=== PATIENT | male | born 1980 | race Caucasian/White ===

== ENCOUNTER 2017-02-08 09:25 | Emergency (ER) | payer SELFPAY ==
[~2017-02-08] VITALS: Ht 182.9 cm; Wt 80.0 kg
[2017-02-08 09:30] VITALS: BP 117/77; PULSE 70; RESP 20; TEMP 97.8; O2SAT 99
--- NOTE | 2017-02-08 09:49 | PD ---
HPI . left axilla swelling since Tuesday Chief Complaint: Skin Problem Time Seen by Provider: 09:48 Travel History International Travel<30 days: No Contact w/Intl Traveler<30days: No Traveled to known affect area: No History of Present Illness HPI 36-year-old male with history of severe anxiety here with complaints of the left axilla swelling since Tuesday. Patient tells me that he initially had some type of cold and flulike symptoms 1 week prior and had some lymph node swelling in his axilla. He says he got better, and then noticed a new swollen area in his left armpit. He has been using warm compresses for a day and thinks that it 's getting bigger. He is complaining of tenderness in the area. He is very anxious and tells me he is worried about this. He denies any fever or chills. He's not certain if something may have stung him. PFSH Past Medical History Anxiety: Yes ?: Not Social History Alcohol Use: Yes Tobacco Use: Yes Substance Use: No Allergies-Medications (Allergen,Severity, Reaction): Coded Allergies: No Known Allergies (Unverified , 02/08/17) Reported Meds & Prescriptions Reported Meds & Active Scripts Active Ibuprofen 800 Mg Tab 800 Mg PO TID Bactrim DS (Sulfamethoxazole-Trimethoprim) 800-160 Mg Tab 1 Tab PO BID Review of Systems General / Constitutional: No: Fever Eyes: No: Visual changes HENT: No: Headaches Cardiovascular: No: Chest Pain or Discomfort Respiratory: No: Shortness of Breath Gastrointestinal: No: Abdominal Pain Genitourinary: No: Dysuria Musculoskeletal: No: Pain Skin: Positive Other (left axilla swelling), No Rash Neurologic: No: Weakness Psychiatric: No: Depression Endocrine: No: Polydipsia Hematologic/Lymphatic: No: Easy Bruising Physical Exam Narrative GENERAL: AAO x 3, no acute distress, Well-nourished, well-developed patient. SKIN: Warm and dry. No visible rashes or bruising. Left axilla with a 2 cm induration, mild erythema, no temperature variation. There is no fluctuance. There is no definitive abscess formation. HEAD: Normocephalic and atraumatic. EYES: No scleral icterus. No injection or drainage. ENT: No nasal drainage noted. Mucous membranes pink. Airway patent. NECK: Supple, trachea midline. No JVD. CARDIOVASCULAR: Regular rate and rhythm without murmurs, gallops, or rubs. RESPIRATORY: Breath sounds equal bilaterally. No accessory muscle use. No rhonchi or rales. GASTROINTESTINAL: Normal visual inspection EXTREMITIES: No cyanosis or edema. BACK: Nontender without obvious deformity. No CVA tenderness. PSYCH: AAO x 3, normal affect. Data Data Last Documented VS Vital Signs Date Time Temp Pulse Resp B/P Pulse Ox O2 Delivery O2 Flow Rate FiO2 02/08/17 09:30 97.8 70 20 117/77 99 Room Air [facility] Medical Decision Making Medical Screen Exam Complete: Yes Emergency Medical Condition: Yes Medical Record Reviewed: Yes Differential Diagnosis Left axilla cellulitis, early abscess, less likely lymph node swelling Narrative Course 36-year-old male with history of severe anxiety here with complaints of the left axilla swelling since Tuesday. Patient tells me that he initially had some type of cold and flulike symptoms 1 week prior and had some lymph node swelling in his axilla. He says he got better, and then noticed a new swollen area in his left armpit. He has been using warm compresses for a day and thinks that it 's getting bigger. He is complaining of tenderness in the area. He is very anxious and tells me he is worried about this. He denies any fever or chills. He's not certain if something may have stung him. Patient seen and examined. He appears to have an early abscess in his left axilla. Unfortunately it is not ready for drainage. I've advised him to try warm compresses and return if there is a head formation. I will go ahead and start him on a course of Bactrim. I provided him with ibuprofen for pain relief. Patient verbalized understanding of instructions, questions were answered, and thanked me for their care. I advised them if their condition worsens, please return to the nearest emergency room for further care. Diagnosis Primary Impression: Cellulitis of axilla, left Patient Instructions: General Instructions Additional Instructions: You can try to use warm compresses to the area to see if a head develops. If it does, you can come back to the emergency department to have it drained. [place] for worsening signs of infection which include fever, increased redness , increased warmth, purulent drainage, increased swelling or streaking. If any of these develop, please go to the nearest emergency room. Please return to emergency department if your symptoms return or worsen. Follow up with your primary care provider. Take medications as prescribed. Med/Other Pt SpecificInfo: Prescription(s) given Scripts Ibuprofen 800 Mg Inr976 Mg PO TID #21 TAB Prov:Cintia Dominguez DO 02/08/17 Sulfamethoxazole-Trimethoprim (Bactrim DS)800-160 Mg Tab1 Tab PO BID #20 TAB Prov:Cintia Dominguez DO 02/08/17 Disposition: 01 DISCHARGE HOME Condition: Stable Rosa Elena Dwyer February 08, 2017 09:48
[2017-02-08] MEDS ORDERED: BACT800T5 PO (09:51)
[2017-02-08] MEDS ORDERED: IBUP800T23 PO (09:51)
[2017-02-09] MEDS ORDERED: CEPH-460 PO (17:48)
== END 2017-02-08 10:06 | disposition home or self-care (01) ==
LOC: NEPK 09:25
DX: F41.9 Anxiety disorder, unspecified (principal); L03.112 Cellulitis of left axilla
CPT/HCPCS: 99282

== ENCOUNTER 2017-02-09 17:32 | Emergency (ER) | payer SELFPAY ==
[~2017-02-09] VITALS: Ht 182.9 cm; Wt 70.0 kg
[2017-02-09 17:32] VITALS: BP 138/72; PULSE 92; RESP 16; TEMP 98.7; O2SAT 95
[~2017-02-09 17:32] MED LIST: BACT800T5 PO; IBUP800T23 PO
--- NOTE | 2017-02-09 17:36 | PD ---
Physical Exam Date Seen by Provider: February 09, 2017 Time Seen by Provider: 17:35 Narrative 36 year old male presents to the emergency department for evaluation of abscess to the left axilla. He was given antibiotics yesterday for cellulitis, but abscess formed today. Vital signs reviewed. Patient awaiting bed placement. Data Data Last Documented VS Vital Signs Date Time Temp Pulse Resp B/P Pulse Ox O2 Delivery O2 Flow Rate FiO2 02/09/17 17:32 98.7 92 16 138/72 95 MDM Supervised Visit with MADDY: Marbella Benjamin February 09, 2017 17:36
[2017-02-09] MEDS ORDERED: CEPH-460 PO (17:48)
--- NOTE | 2017-02-09 17:49 | PD ---
HPI Chief Complaint: Skin Problem Time Seen by Provider: 17:47 Travel History International Travel<30 days: No Contact w/Intl Traveler<30days: No Traveled to known affect area: No History of Present Illness HPI 36-year-old male presents emergency Department with complaint of worsening of an abscess to his left armpit. He was seen yesterday and was given Bactrim. The abscess was not drained because it wasn't big enough. He has been taking the Bactrim as prescribed. Denies fever or vomiting. Has been doing warm compresses to the area. Has no other medical complaints. No known allergies. No other modifying factors or associated signs and symptoms. PFSH Past Medical History Anxiety: Yes Social History Alcohol Use: Yes Tobacco Use: Yes Substance Use: No Allergies-Medications (Allergen,Severity, Reaction): Coded Allergies: No Known Allergies (Unverified , 02/09/17) Reported Meds & Prescriptions Reported Meds & Active Scripts Active Keflex (Cephalexin) 500 Mg Cap 500 Mg PO Q6H 10 Days Ibuprofen 800 Mg Tab 800 Mg PO TID Bactrim DS (Sulfamethoxazole-Trimethoprim) 800-160 Mg Tab 1 Tab PO BID Review of Systems Except as stated in HPI: all other systems reviewed are Neg Physical Exam Narrative GENERAL: Well-nourished, well-developed patient, in no acute distress; afebrile , nontoxic-appearing SKIN: There is an indurated area in the left axilla which measures about 2 cm in diameter. It is fluctuant but there is no pointing or drainage. There is a zone of inflammation around it but no lymphangitis. HEAD: Atraumatic. Normocephalic. EYES: Pupils equal and round. No scleral icterus. No injection or drainage. ENT: Mucosa pink and moist. Airway patent. NECK: Trachea midline. CARDIOVASCULAR: Regular rate. RESPIRATORY: No accessory muscle use. GASTROINTESTINAL: Flat. MUSCULOSKELETAL: No obvious deformities. No clubbing. No cyanosis. No edema. NEUROLOGICAL: Awake and alert. Oriented 3. No obvious cranial nerve deficits. Motor grossly within normal limits. Normal speech. PSYCHIATRIC: Appropriate mood and affect; insight and judgment normal. Data Data Last Documented VS Vital Signs Date Time Temp Pulse Resp B/P Pulse Ox O2 Delivery O2 Flow Rate FiO2 02/09/17 17:32 98.7 92 16 138/72 95 MDM Medical Decision Making Medical Screen Exam Complete: Yes Emergency Medical Condition: Yes Medical Record Reviewed: Yes Differential Diagnosis Abscess, folliculitis, cellulitis Narrative Course 36-year-old male with an abscess to his left armpit. He was seen yesterday and given a prescription for Bactrim for cellulitis to the left armpit. See my procedure note for incision and drainage. Wound culture pending. Keflex prescribed for home. Instructed patient to continue Bactrim as prescribed. Patient verbalizes understanding and agreement with treatment plan. Patient is medically cleared and stable for discharge. Discussed reasons to return to the emergency department. Instructed patient to follow up with primary care provider. Patient agrees with treatment plan. The patients vital signs are stable and the patient is stable for outpatient follow-up and treatment. Patient discharged home, stable and in no acute distress. Procedures Procedure Narrative INCISION AND DRAINAGE OF ABSCESS: The area was prepped and was sterilely draped. Ethyl chloride was used to anesthetize the area. The area was properly anesthetized. A number 11 scalpel was used to make a 0.5-cm incision across the area of the abscess. Cultures were obtained. The abscess was drained an irrigated with normal saline. Sterile dressing applied. Diagnosis Primary Impression: Abscess of left axilla Referrals: Primary Care Physician Patient Instructions: Abscess (ED), Abscess Follow-up (ED), Abscess Incision and Drainage (ED), General Instructions Departure Forms: Tests/Procedures, Work Release Enter return to work date: February 10, 2017 Additional Instructions: Complete full course of antibiotics Warm compresses to the affected area Keep area clean and dry Ibuprofen or Tylenol as directed and as needed for pain and inflammation Follow-up with primary care provider Return to emergency department immediately with worsening of symptoms Med/Other Pt SpecificInfo: Prescription(s) given Scripts Cephalexin (Keflex)500 Mg Lih450 Mg PO Q6H 10 Days Ref 0 Prov:Jessica Thayer 02/09/17 Disposition: 01 DISCHARGE HOME Condition: Stable Jessica Thayer February 09, 2017 17:49
== END 2017-02-09 18:06 | disposition home or self-care (01) ==
LOC: NEPK 17:32
DX: L02.412 Cutaneous abscess of left axilla (principal); B95.61 Methicillin susceptible Staphylococcus aureus infection as the cause of diseases classified elsewhere
CPT/HCPCS: 10060; 86403; 87070; 87186; 87205

== ENCOUNTER 2017-03-20 02:09 | Emergency (ER) | payer SELFPAY ==
[~2017-03-20] VITALS: Ht 180.3 cm; Wt 75.0 kg
[~2017-03-20 02:09] MED LIST changes: +CEPH-460 PO
[2017-03-20 02:22] VITALS: BP 130/88; PULSE 82; RESP 18; TEMP 98.5; O2SAT 98
[2017-03-20] MEDS ORDERED: TETANUS/DIPHTHERIA TOXOID ADULT 0.5 ML VIAL IM ONE (02:45)
[2017-03-20] MEDS ORDERED: SODIUM CHLOR 0.9% 1000 ML INJ 1,000 ML IV ONE (02:45)
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
== END 2017-03-20 04:01 | disposition home or self-care (01) ==
LOC: NEPC 02:09
DX: S09.90XA Unspecified injury of head, initial encounter (principal); S36.112A Contusion of liver, initial encounter; F41.9 Anxiety disorder, unspecified; K21.9 Gastro-esophageal reflux disease without esophagitis; Z23 Encounter for immunization; Z72.0 Tobacco use; Y04.8XXA Assault by other bodily force, initial encounter
CPT/HCPCS: 70450; 72125; 90471; 90714; 99285; J7030